=== PATIENT | male | born 1935 | race Caucasian/White ===

== ENCOUNTER 2023-10-26 00:26 | Emergency (ER) | payer MEDICARE, BC, SELFPAY ==
[2023-10-26 00:29] VITALS: BP 144/70
[2023-10-26 00:44] VITALS: BMI 21.3
[2023-10-26 01:08] LABS: Urine Albumin Trace (Neg - Trace); Urine Bilirubin Negative (Negative); Urine Character Clear (Clear); Urine Color Yellow; Urine Glucose Negative (Negative); Urine Ketone Negative (Negative); Urine Leukocyte 1+ (Negative); Urine Nitrite Negative (Negative); Urine Occult Blood Negative (Negative); Urine Urobilinogen Negative (Neg - 1+); Urine pH 6.5 (5.0-9.0)
[2023-10-26 01:36] LABS: Urine Bacteria Moderate (Negative); Urine White Cell >100 /HPF (0-5)
[2023-10-26 01:38] LABS: Urine Amorphous Seen
--- NOTE | 2023-10-26 02:39 | ED.GENMED ---
History of Present Illness
General
Chief Complaint: Male Genito-Urinary Symptoms
Source: patient
Time Seen by Provider: 10/26/23 02:31
Travel History
Have you had any contact with someone who has COVID-19?: No
Do you have any symptoms of coronavirus? Fever > 100 degrees, chills, cough, shortness of breath, sore throat, loss of taste or smell, muscle aches, or headache?: No
History of Present Illness
History of Present Illness:
Very pleasant 88-year-old gentleman presents to the emergency room complaining of difficulty urinating. Patient has history of bladder cancer and enlarged prostate. Over the past 3 to 4 days he has been experiencing increasing difficulty passing
his urine. He is having dribbling and some spasms at times. No fever or chills. Patient sees a urologist at [facility] in [place].
Past History
Past History
ED Past Medical History: Cancer (facial), COPD, GERD and Other (BPH, Urinary retention, Slight Dementia, )
ED Past Surgical History: Bowel resection, Cholecystectomy and Other (Hernia, carolina cataracts)
Social History
Tobacco: Former smoker
Alcohol: None
Drug: None
Personal:
Living: with family
Family History
Family History: Other (He had a dad with an OK)
Phy Exam
Physical Exam
Physical Exam:
General: Awake, Alert, Oriented X3. No acute distress.
Vitals: unremarkable
Head: Atraumatic
Eyes: Pupils equal, EOMI
Abd: Soft, Nontender, No pulsatile mass
Neuro: Nonfocal
Skin: Warm, dry, no rash
Extremities: pulses equal b/l, no edema
Course
Orders/Labs/Results
Orders:
Orders
10/26/23 00:43
Bain [Bain Placement- Treatment] ONCE
Reason for insertion: Acute Retention
10/26/23 00:59
Urinalysis Reflex To Culture Urgent
Date Specimen was Collected: 10/26/23
Time Specimen was Collected: 00:43
Urine Microscopic Reflex Cult Urgent
Urine Culture Urgent
NEETA Source: U
Specimen Description:
Date Specimen was Collected: 10/26/23
Time Specimen was Collected: 00:43
10/26/23 02:37
Cephalexin Monohydrate [Keflex] 500 mg PO NOW STA
Abnormal Lab Results
10/26/23
00:59
Leukocyte Esterase Rfl 1+ A
(Negative)
Urine RBC 7-10 A /HPF
(0-2)
Urine WBC (Reflex) >100 A /HPF
(0-5)
Urine Bacteria (Reflex) Moderate A
(Negative)
Vital Signs
Initial and Last Documented VS:
Initial Vital Signs
Temp Pulse Resp BP Pulse Ox
98.1 F 60 18 144/70 96
10/26/23 00:29 10/26/23 00:29 10/26/23 00:29 10/26/23 00:29 10/26/23 00:29
Last Documented Vital Signs
Temp Pulse Resp BP Pulse Ox
98.1 F 60 18 144/70 96
10/26/23 00:29 10/26/23 00:29 10/26/23 00:29 10/26/23 00:29 10/26/23 00:29
MDM/Problems Addressed
Differential Diagnosis Includes:
Urinary retention, urinary tract infection, bladder spasm
MDM/Problems Addressed:
Patient had greater than 400 cc on bladder scan. Bain catheter placed. Had significant improvement in his discomfort. Urine was sent and he does have a significant number of white blood cells per high-power field. Urine is positive for's
leukocyte esterase. We will cover him for Keflex.
*Pulse Oximetry
Patient hypoxic: no
*Critical Care Note
Total Time (30-74mins, 75-104mins- exclusive of procedures): Not Applicable
ED Attending Note
-
Portions of this chart may have been created with voice recognition software.� Occasional wrong word or��sound alike� substitutions may have occurred due to the inherent limitations of voice recognition software.
Discharge Plan
Departure
Patient Disposition: Home (Routine Discharge)
Date of Disposition: 10/26/23
Time of Disposition: 02:39
Patient with high blood pressure during this ER visit?: Yes
Condition: Good
Discharge Problem:
Acute urinary retention, Acute UTI
Instructions: How to Care for Your Bain Catheter, Male, Urinary Retention (DC), Urinary Tract Infection, Adult ED, BLOOD PRESSURE
Prescriptions:
New
cephalexin 500 mg capsule
500 mg PO BID 7 Days Qty: 14 0RF
No Action
albuterol sulfate 1 PUFF HFA aerosol inhaler
1 puff inhalation R Q4HPRN PRN (Reason: golfing excerise)
tamsulosin 0.4 MG capsule
0.4 mg PO DAILY Qty: 30 0RF
omeprazole 40 MG capsule,delayed release(DR/EC)
40 mg PO DAILY
finasteride 5 MG tablet
5 mg PO DAILY
clonazepam 0.5 mg Tablet
0.5 mg PO HS
budesonide 0.5 mg/2 mL suspension for nebulization
0.5 mg inhalation R BIDPRN PRN (Reason: excerises)
albuterol sulfate 0.63 mg/3 mL Solution For Nebulization
0.63 mg INHALATION TID
rivastigmine tartrate 6 mg Capsule
6 mg PO BID
memantine 10 mg Tablet
10 mg PO BID
Referrals:
Edmond Moore MD [Family Provider] -
Interventions
Interventions:
*Risk Screen - Suicide Last Done: 10/26/23 01:08
*General Assessment Last Done: 10/26/23 01:08
*Neglect/Abuse Screening Last Done: 10/26/23 01:08
[2023-10-26] MEDS: KEFLEX 500 MG PO (02:41)
[2023-10-26 02:45] VITALS: BP 135/70
== END 2023-10-26 02:46 | disposition home or self-care (01) ==
LOC: EMR 00:26
PROVIDERS: EMERGENCY PHYSICIAN Emergency Medicine; FAMILY PHYSICIAN Family Medicine
DX: N39.0 Urinary tract infection, site not specified (principal); R33.9 Retention of urine, unspecified; Z87.891 Personal history of nicotine dependence; N40.1 Benign prostatic hyperplasia with lower urinary tract symptoms; Z85.51 Personal history of malignant neoplasm of bladder
CPT/HCPCS: 99283; 51798; 51702; 81003; 81015; 87086

== ENCOUNTER → 2023-11-02 14:05 | Outpatient (REF) | payer MEDICARE, BC, SELFPAY | LOC: RCS 14:05 | PROVIDERS: ATTENDING PHYSICIAN Internal Medicine Cardiovascular Disease; FAMILY PHYSICIAN Family Medicine | DX: J44.9 Chronic obstructive pulmonary disease, unspecified (principal); I77.810 Thoracic aortic ectasia; I25.10 Atherosclerotic heart disease of native coronary artery without angina pectoris; Z01.810 Encounter for preprocedural cardiovascular examination; R06.2 Wheezing | CPT/HCPCS: 71046; 93306 ==

== ENCOUNTER → 2023-11-08 06:46 | Outpatient (REF) | payer MEDICARE, BC, SELFPAY ==
[2023-11-08] MEDS: DOBUTREX 50 MG IV (09:09)
[2023-11-08] MEDS: NSS 250 IV (09:09)
[2023-11-08] MEDS: DOBUTREX 50 ML IV (09:09)
== END ==
LOC: RCS 06:46
PROVIDERS: ATTENDING PHYSICIAN Internal Medicine Cardiovascular Disease; FAMILY PHYSICIAN Family Medicine
DX: I25.10 Atherosclerotic heart disease of native coronary artery without angina pectoris (principal); R06.02 Shortness of breath; I35.0 Nonrheumatic aortic (valve) stenosis
CPT/HCPCS: 78452; 93017; A9500

== ENCOUNTER 2023-11-19 06:04 | Emergency (ER) | payer MEDICARE, BC, SELFPAY ==
[2023-11-19 06:22] VITALS: BP 123/72
--- NOTE | 2023-11-19 07:52 | ED.GENMED ---
History of Present Illness
General
Chief Complaint: Catheter/Tube Problem
Source: patient and family
Time Seen by Provider: 11/19/23 07:33
Travel History
Have you had any contact with someone who has COVID-19?: No
Do you have any symptoms of coronavirus? Fever > 100 degrees, chills, cough, shortness of breath, sore throat, loss of taste or smell, muscle aches, or headache?: No
History of Present Illness
History of Present Illness:
88-year-old male presents to the emergency room for evaluation after inadvertently having his Bain catheter pulled out. Patient was asleep when somehow the catheter was pulled out. It was pulled out with the balloon intact. He had significant
pain at that time. This occurred at about 11:30 PM. Since then has been voiding normally. He is catheterized because of recent bladder surgery. However he was due to have the catheter removed in 2 days. Currently he denies any complaints.
Past History
Past History
ED Past Medical History: Cancer (facial), COPD, GERD and Other (BPH, Urinary retention, Slight Dementia, )
ED Past Surgical History: Bowel resection, Cholecystectomy and Other (Hernia, carol[place] cataracts)
Social History
Tobacco: Former smoker
Alcohol: None
Drug: None
Personal:
Living: with family
Family History
Family History: Other (He had a dad with an MD)
Phy Exam
Physical Exam
Physical Exam:
General: Awake, Alert, Oriented X3. No acute distress.
Vitals: unremarkable
Head: Atraumatic
Eyes: Pupils equal, EOMI
Throat: Airway intact, no exudates
Neck: Trachea midline
Lungs: Clear and equal b/l
Heart: Regular rate, no murmurs
Abd: Soft, Nontender, No pulsatile mass
Genitalia: Normal external genitalia. No suprapubic tenderness
Neuro: Nonfocal
Skin: Warm, dry, no rash
Extremities: pulses equal b/l, no edema
Course
Vital Signs
Initial and Last Documented VS:
Initial Vital Signs
Temp Pulse Resp BP Pulse Ox
97.3 F 64 20 123/72 97
11/19/23 06:22 11/19/23 06:22 11/19/23 06:22 11/19/23 06:22 11/19/23 06:22
Last Documented Vital Signs
Temp Pulse Resp BP Pulse Ox
97.3 F 60 18 143/71 99
11/19/23 06:22 11/19/23 08:10 11/19/23 08:10 11/19/23 08:10 11/19/23 08:10
MDM/Problems Addressed
Differential Diagnosis Includes:
Urethral trauma, bladder outlet obstruction
MDM/Problems Addressed:
Patient is voiding spontaneously on demand. He is not having hematuria. I believe we should not reinsert his Bain catheter at this time. He will return for any urinary retention.
*Critical Care Note
Total Time (30-74mins, 75-104mins- exclusive of procedures): Not Applicable
ED Attending Note
-
Portions of this chart may have been created with voice recognition software.� Occasional wrong word or��sound alike� substitutions may have occurred due to the inherent limitations of voice recognition software.
Discharge Plan
Departure
Patient Disposition: Home (Routine Discharge)
Date of Disposition: 11/19/23
Time of Disposition: 07:55
Patient with high blood pressure during this ER visit?: No
Condition: Good
Discharge Problem:
Dislodged Bain catheter
Prescriptions:
No Action
albuterol sulfate 1 PUFF HFA aerosol inhaler
1 puff inhalation R Q4HPRN PRN (Reason: golfing excerise)
tamsulosin 0.4 MG capsule
0.4 mg PO DAILY Qty: 30 0RF
omeprazole 40 MG capsule,delayed release(DR/EC)
40 mg PO DAILY
finasteride 5 MG tablet
5 mg PO DAILY
clonazepam 0.5 mg Tablet
0.5 mg PO HS
budesonide 0.5 mg/2 mL suspension for nebulization
0.5 mg inhalation R BIDPRN PRN (Reason: excerises)
albuterol sulfate 0.63 mg/3 mL Solution For Nebulization
0.63 mg INHALATION TID
rivastigmine tartrate 6 mg Capsule
6 mg PO BID
memantine 10 mg Tablet
10 mg PO BID
cephalexin 500 mg capsule
500 mg PO BID 7 Days Qty: 14 0RF
Referrals:
Edmond Moore MD [Family Provider] -
Activity Restrictions/Additional Instructions:
We will not replace her Bain catheter because you are voiding spontaneously. Please return to the emergency room if this changes and you are unable to pass your urine. Follow-up with your urologist as scheduled
Interventions
Interventions:
*General Assessment Last Done: 11/19/23 06:22
*Neglect/Abuse Screening Last Done: 11/19/23 06:22
ED- Fall Risk Assessment Last Done: 11/19/23 06:22
*ED COVID-19 Vaccine History Last Done: 11/19/23 06:22
*Nursing Disposition Last Done: 11/19/23 08:18
FX-[id number] Assessment Last Done: 11/19/23 08:16
ED-Male Genitourinary Assessment Last Done: 11/19/23 08:18
Discharge Date and Time
Discharge Date/Time: 11/19/23 08:18
[2023-11-19 08:10] VITALS: BP 143/71
== END 2023-11-19 08:18 | disposition home or self-care (01) ==
LOC: EMR 06:04
PROVIDERS: EMERGENCY PHYSICIAN Emergency Medicine; FAMILY PHYSICIAN Family Medicine
DX: T83.021A Displacement of indwelling urethral catheter, initial encounter (principal); X58.XXXA Exposure to other specified factors, initial encounter; J44.9 Chronic obstructive pulmonary disease, unspecified; K21.9 Gastro-esophageal reflux disease without esophagitis; N40.0 Benign prostatic hyperplasia without lower urinary tract symptoms; F03.90 Unspecified dementia, unspecified severity, without behavioral disturbance, psychotic disturbance, mood disturbance, and anxiety; Z87.891 Personal history of nicotine dependence; Z90.49 Acquired absence of other specified parts of digestive tract
CPT/HCPCS: 99282